=== PATIENT | female | born 1975 | race Caucasian/White ===

== ENCOUNTER 2016-04-14 09:24 | Emergency (ER) | payer MEDICAID ==
[~2016-04-14] VITALS: Ht 162.6 cm; Wt 99.8 kg
[~2016-04-14 09:24] MED LIST: PROAIR HFA0.09 MG/Ac IH
[2016-04-14 09:46] VITALS: BP 142/103
--- NOTE | 2016-04-14 09:54 | NUR ---
PATIENT PRESENTS TO ED WITH PRODUCTIVE COUGH, N/V, BODY ACHES X2 DAYS; TOOK IBUPROFEN YESTERDAY.Hx PNEUMONIA, ASTHMA . PT STATES SHE HAS PAIN IN HER BOTH ARMS, N/VOMITTED 2X TODAY, SKIN IS PINK/WARM/DRY; AAOX4 WITH EVEN AND STEADY GAIT; HR EVEN AND REGULAR; ; PATIENT STATES PAIN OF CHEST AND THROAT W/ SCALE OF 6/10 AT THIS TIME; PATIENT POSITIONED FOR COMFORT; HOB ELEVATED; BEDRAILS UP X2; BED DOWN. MD AT BEDSIDE.
[2016-04-14] MEDS ORDERED: ALBUTEROL SULFATE/IPRATROPIU 3 ML SOL IH ONE (10:10)
--- NOTE | 2016-04-14 11:37 | NUR ---
PT IS AAOX4, NO ACUTE DISTRESS NOTED AT THIS TIME. NEEDS ATTENDED.WILL CONTINUE TO MONITOR.
[2016-04-14] MEDS ORDERED: NACL 0.9% 1,000 ML IV ONE (11:40)
[2016-04-14] MEDS ORDERED: ONDANSETRON 4 MG/2 ML VIAL IVP ONE (11:40)
[2016-04-14] MEDS ORDERED: IBUPROFEN 800 MG TAB PO ONE (11:40)
--- NOTE | 2016-04-14 12:22 | NUR ---
PT AAO. PT VOMITTED X1. NO ACUTE DISTRESS NOTED.HOB ELEVATED NEEDS ATENDED. WILL CONTINUE TO MONITOR. ZOFRAN ADMINISTERED.
[2016-04-14 14:17] VITALS: BP 112/78
--- NOTE | 2016-04-14 14:17 | NUR ---
Note marinaana paula in EDM - 04/14/16 at 1421 by MEDCOMPAF Patient discharged with v/s stable. Written and verbal after care instructions given and explained. Patient alert, oriented and verbalized understanding of instructions. Ambulatory with steady gait. All questions addressed prior to discharge. ID band removed. Patient advised to follow up with PMD. Rx of PREDNISONE AND ALBUTEROL(90 MCG/ACTUATION INHALATION AEROSOL), given. Patient educated on indication of medication including possible reaction and side effects. Opportunity to ask questions provided and answered.
--- NOTE | 2016-04-14 14:22 | NUR ---
Patient discharged with v/s stable. Written and verbal after care instructions given and explained. Patient alert, oriented and verbalized understanding of instructions. Ambulatory with steady gait. All questions addressed prior to discharge. ID band removed. Patient advised to follow up with PMD. Rx of PREDNISONE AND ALBUTEROL(90 MCG/ACTUATION INHALATION AEROSOL)(ALBUTEROL SULFATE 0.5% SOLUTION FOR INHALATION), given. Patient educated on indication of medication including possible reaction and side effects. Opportunity to ask questions provided and answered.
[2016-09-01] MEDS ORDERED: VANCO 1.51.5 GM/250 IV (16:39)
[2016-09-01] MEDS ORDERED: FLAGYL 500500 MG/100 IV (16:40)
== END 2016-04-14 14:22 | disposition home or self-care (01) ==
LOC: MED 09:29
DX: J06.9 Acute upper respiratory infection, unspecified (principal); J02.9 Acute pharyngitis, unspecified; J45.909 Unspecified asthma, uncomplicated
CPT/HCPCS: 71020; 87081; 94640; 96361; 96374; 99285; J2405; J7030; J7620

== ENCOUNTER 2016-09-01 09:05 | Inpatient (IN) | payer MEDICAID ==
[~2016-09-01] VITALS: Ht 160 cm; Wt 103.4 kg
[~2016-09-01 09:05] MED LIST changes: +ALBU-136 IH; -PROAIR HFA0.09 MG/Ac IH
[2016-09-01 09:16] VITALS: BP 132/80
--- NOTE | 2016-09-01 09:30 | NUR ---
PATIENT PRESENTS TO ED WITH THROAT PAIN . PT STATES THROAT PAIN SINCE SUNDAY. SEEN AT [facility] ER FOR SAME COMPLAINT ON SUNDAY. DENIES N/V/D; SKIN IS PINK/WARM/DRY; AAOX4 WITH EVEN AND STEADY GAIT; BILATERAL WHEEZES HEARD ON LOWER LOBES; HR EVEN AND REGULAR; PT DENIES ANY FEVER, CP, SOB. PT HAS COUGH AT THIS TIME; PATIENT STATES PAIN OF 8/10 AT THIS TIME; VSS; PATIENT POSITIONED FOR COMFORT; HOB ELEVATED; BED DOWN. ER MD MADE AWARE OF PT STATUS.
[2016-09-01] MEDS ORDERED: NACL 0.9% 1,000 ML IV SCH (09:41)
[2016-09-01] MEDS ORDERED: DEXAMETHASONE 10 MG/ML VIAL IVP ONE (09:45)
[2016-09-01] MEDS ORDERED: CLINDAMYCIN 900 MG in DEXTROSE 5% 100 ML IV ONE (09:45)
[2016-09-01] MEDS ORDERED: RACEPINEPHRINE 2.25% 13.5 MG/0.5 ML NEBU INH ONE (09:50)
[2016-09-01] MEDS ORDERED: CLINDAMYCIN 900 MG/6 ML VIAL IV ONE (09:58)
[2016-09-01 10:09] LABS: BLOOD GAS PCO2 31.9 mmHg (20-50); BLOOD GAS PH 7.482 (7.35-7.45)
[2016-09-01 10:10] LABS: BLOOD GAS BASE EXCESS 0.5 mmol/L (-2.0-2.0); BLOOD GAS HCO3 23.3 mmol/L; BLOOD GAS O2 SAT% 98.4 % (92.0-98.5)
--- NOTE | 2016-09-01 10:14 | NUR ---
XRAY AT BEDSIDE.
--- NOTE | 2016-09-01 10:16 | NUR ---
RT AT BEDSIDE.
[2016-09-01] MEDS ORDERED: DOCUSATE SODIUM 100 MG GELCAP PO PRN (10:30)
[2016-09-01] MEDS ORDERED: ACETAMINOPHEN 325 MG TAB PO PRN (10:30)
[2016-09-01] MEDS: NACL 0.9% 1,000 ML IV SCH ×2 (10:30→19:49)
[2016-09-01] MEDS ORDERED: ONDANSETRON 4 MG/2 ML VIAL IM/IVP PRN (10:30)
[2016-09-01] MEDS ORDERED: HYDROcodone/APAP 7.5/325 MG 1 TAB PO PRN (10:30)
[2016-09-01 10:31] LABS: BASOPHILS # (AUTO) 0.5 K/uL (0.00-0.22); BASOPHILS % (AUTO) 2.8 % (0.0-2.0); EOSINOPHILS # (AUTO) 0.1 K/uL (0-0.4); EOSINOPHILS % (AUTO) 0.7 % (0.0-4.0); HEMATOCRIT 33.1 % (36-48); HEMOGLOBIN 10.9 g/dL (12.0-16.0); LYMPHOCYTES # (AUTO) 3.2 K/uL (2.5-16.5); LYMPHOCYTES % (AUTO) 19.2 % (20.5-51.1); MEAN CORPUSCULAR HEMOGLOBIN 27 pg (27-31); MEAN CORPUSCULAR HGB CONC 33 g/dL (33-37); MEAN CORPUSCULAR VOLUME 82 fL (80-94); MONOCYTES # (AUTO) 1.4 K/uL (0.8-1.0); MONOCYTES % (AUTO) 8.4 % (1.7-9.3); NEUTROPHILS # (AUTO) 11.3 K/uL (1.8-7.7); NEUTROPHILS % (AUTO) 68.9 % (42.2-75.2); PLATELET COUNT (AUTO) 404 K/uL (140-450); RED BLOOD CELL COUNT(AUTO) 4.02 MIL/uL (4.20-5.40); RED CELL DISTRIBUTION WIDTH 17.1 % (11.6-13.7); WHITE BLOOD COUNT (AUTO) 16.5 K/uL (4.8-10.8)
[2016-09-01 10:56] LABS: APPEARANCE,URINE CLEAR (CLEAR); BILIRUBIN,URINE NEGATIVE (NEGATIVE); BLOOD, URINE TRACE-I (NEGATIVE); COLOR,URINE YELLOW (YELLOW); LEUKOCYTE ESTERASE ,URINE NEGATIVE (NEGATIVE); NITRITE, URINE NEGATIVE (NEGATIVE); PH,URINE 6.5 (5.0-9.0); PROTEIN,URINE NEGATIVE (NEGATIVE); UGLUCOSE NEGATIVE (NEGATIVE); UROBILINOGEN,URINE 0.2 EU/dL (0.2 - 1)
--- NOTE | 2016-09-01 10:59 | NUR ---
Patient will be admitted to care of DR BERKOWITZ. Admited to TELEMETRY. Will go to room 112 A. Belongings list completed. Report to ZEE SHARIF.
[2016-09-01 11:02] LABS: PARTIAL THROMBOPLASTIN TIME 26.9 secs (22-35.6); PROTHROMBIN TIME 10.5 secs (10.8-13.4)
[2016-09-01 11:06] LABS: LACTIC ACID 1.8 mmol/L (0.4-2.0)
[2016-09-01 11:06] LABS: FREE T4 (FREE THYROXINE) 0.99 ng/dL (0.76-1.46); PHOSPHORUS 3.4 mg/dL (2.5-4.9); THYROID STIMULATING HORMONE 5.15 uIU/mL (0.34-3.76)
[2016-09-01 11:12] LABS: ALBUMIN 2.7 g/dL (3.4-5.0); ANION GAP 11.1 (8-16); CALCIUM 7.5 mg/dL (8.5-10.1); CARBON DIOXIDE 27.9 mmol/L (21-32); CREATININE 0.7 mg/dL (0.6-1.3); TOTAL BILIRUBIN 0.3 mg/dL (0.0-1.0); TOTAL PROTEIN, SERUM 7.1 g/dL (6.4-8.2)
[2016-09-01 11:13] LABS: AMPHETAMINE, URINE NEG. ng/ml (NEG <=1000); BARBITURATE, URINE NEG. ng/ml (NEG <=200); BENZODIAZEPINE, URINE NEG. ng/mL (NEG <=200); CANNABINOID, URINE NEG. ng/mL (NEG <=50); COCAINE, URINE NEG. ng/mL (NEG <=300); OPIATE, URINE NEG. ng/mL (NEG <=2000); PHENCYCLIDINE SCREEN,URINE NEG. ng/mL (NEG <=25)
[2016-09-01 11:22] LABS: BACTERIA,URINE OCCASSIONAL /HPF (None Seen); RBC,URINE 0-3 /HPF (0-5); WBC,URINE 0-2 /HPF (0-5)
[2016-09-01 11:23] LABS: MUCUS,URINE 1+ /LPF (None Seen); SQUAMOUS EPITHELIAL CELL,UR 0-3 /LPF (0-3 (FEW))
[2016-09-01 11:30] VITALS: BP 124/90
--- NOTE | 2016-09-01 11:30 | NUR ---
RECEIVED PT VIA GURNEY ON FLOOR, PT IS A/OX4, AMBULATORY, SKIN INTACT, IV ON THE RT AC, PATENT, INTACT, FLUSHING WELL, NO S/S OF RESPIRATORY DISTRESS OR DISCOMFORT NOTED, SAFETY/FALL PRECAUTIONS ARE IN PLACE, DISCUSSED PLAN OF CARE WITH PT, PT VERBALIZED UNDERSTANDING, CALL LIGHT IS WITHIN REACH, WILL CONTINUE TO MONITOR.
--- NOTE | 2016-09-01 13:30 | NUR ---
PT IS RESTING IN BED AT THIS TIME, NO S/S OF RESPIRATORY DISTRESS OR DISCOMFORT NOTED, CALL LIGHT WITHIN REACH WILL CONTINUE TO MONITOR.
[2016-09-01] MEDS ORDERED: ALBUTEROL SULFATE/IPRATROPIU 3 ML SOL IH PRN (15:20)
--- NOTE | 2016-09-01 15:30 | NUR ---
PT IS RESTING IN BED TALKING ON HER CELL PHONE, CALL LIGHT IS WITHIN REACH.
[2016-09-01] MEDS ORDERED: VANCOMYCIN PER PHARMACY MC PRN (15:45)
--- NOTE | 2016-09-01 15:55 | NUR ---
RECEIVED ORDER FOR PATIENT TO BE TRANSFERED FOR ENT. I CALLED [facility], [phone], AND SPOKE WITH FARHANA AND FAXED FACE SHEET. SHE SAID SHE DOES NOT HAVE ANY MED SURG BEDS. I GAVE HER THE PHONE NUMBER TO THE FLOOR IF THEY GET A BED. I CALLED [facility] AND SPOKE WITH YOVANI, [phone]. I FAXED HER THE FACE SHEET TO HER . I SPOKE WITH DR. MILLER AND SHE SAID SHE WOULD TRY TO GET SOMEONE TO ADMIT THE PATIENT AT [facility]. I CALLED [facility] AND SPOKE WITH FIONA AFTER I FAXED INQUIRY TO THEM, PHONE [phone]. SHE SAID THEY WILL REVIEW AND CALL BACK. I PUT THE PHONE NUMBER TO THE FLOOR ON THE FAX SHEET. CALLED SAMUEL AT [facility] AND SHE SAID THAT THE ACCEPTING PHYSICIAN WOULD BE DR. Lynda VILLASENOR. SHE FAXED ME THE TRANSFER BACK AGREEMENT AND SENT IT BACK AFTER BEING FILLED OUT. SAMUEL SAID AT PRESENT, NO BEDS AND I GAVE HER THE PHONE NUMBER TO THE FLOOR TO CALL. [place] [facility]POKE WITH SELIN . SHE SAID THEY WILL NOT CONSIDER THIS PATIENT UNLESS PRUCOL FOR MEDI-PATRICIO IS INITIATED. CALLED [facility]. NO BEDS CALLED [facility] AND SPOKE WITH JOJO. PHONE [phone]. SHE SAID SHE HAS NO BEDS, BUT CHECK TOMORROW. I FAXED INQUIRY TO HER AT [phone]. I ALSO PUT THE PHONE NUMBER TO THE FLOOR ON THE FAX COVER SHEET.
[2016-09-01] MEDS: metroNIDAZOLE 500 MG/NS PREMIX 100 ML IV SCH ×2 (16:37→23:50)
[2016-09-01] MEDS ORDERED: VANC1.5P7 IV (16:39)
[2016-09-01] MEDS ORDERED: METR500S14 IV (16:40)
--- NOTE | 2016-09-01 16:58 | NUR ---
CALLED [facility] AND SPOKE WITH OYSTER TONGER, TA. SHE SAID THEY HAVE 1 ENT AND HE ONLY TAKES MEDICARE AND COMMERCIAL.. CALLED [facility] AND SPOKE WITH KHOI. THEY DO NOT HAVE AN ENT ON STAFF. CALLED [facility], NOT ENT. CALLED [facility] AND SPOKE WITH OYSTER TONGER LEIGHA. NO ENT AVAILABLE. SPOKE WITH JACQUI AT [facility] AND HE SAID HE WILL BE CHECKING WITH BED CONTROL AND WILL CALL THE FLOOR WITH THE STATUS. ACCCEPTING PHYSICIAN AT [facility] IS DR. Moon VILLASENOR.
--- NOTE | 2016-09-01 17:30 | NUR ---
PT IS SLEEPING IN BED AT THIS TIME. CALL LIGHT WITHIN REACH.
[2016-09-01 18:00] VITALS: BP 129/78
[2016-09-01] MEDS: VANCOMYCIN 1,500 MG in DEXTROSE 5% 500 ML IV SCH (18:33)
[2016-09-01] MEDS: KETOROLAC 15 MG/ML VIAL IVP SCH (18:33)
[2016-09-01 18:57] VITALS: BP 124/90
[2016-09-01] MEDS: ALBUTEROL SULFATE/IPRATROPIU 3 ML SOL IH SCH ×2 (19:18→23:21)
--- NOTE | 2016-09-01 19:35 | NUR ---
ENDORSED PT TO ZEE HORTON. FOR CONTINUITY OF CARE, PT STABLE AT THIS TIME, SISTER IS AT BEDSIDE.
--- NOTE | 2016-09-01 19:35 | NUR ---
RECEIVED REPORT FROM CHANTE KOCH AT BEDSIDE. PT IS ALERT, AWAKE ORIENTED X4. INITIAL ASSESSMENT DONE. NO S/S OF RESPIRATORY DISTRESS OR SOB NOTED. NO C/O PAIN OR ANY DISCOMFORT AT THIS TIME. PLAN OF CARE REVIEWED TO PT AND FAMILY AT BEDSIDE AND VERBALIZED UNDERSTANDING. CALL LIGHT WITHIN REACH. WILL CONTINUE TO MONITOR.
[2016-09-01 20:00] VITALS: BP 126/84
[2016-09-01] MEDS ORDERED: CLINDAMYCIN 600 MG in DEXTROSE 5% 50 ML IV SCH (21:00)
[2016-09-02] VITALS: BP 122/83
[2016-09-02] MEDS: KETOROLAC 15 MG/ML VIAL IVP SCH ×2 (00:08→05:56)
--- NOTE | 2016-09-02 00:40 | NUR ---
PT IS SLEEPING RIGHT NOW BUT EASILY AROUSABLE. NO S/S OF ANY DISCOMFORT AT THIS TIME. ALL NEEDS ARE ATTENDED. CALL LIGHT WITHIN REACH. WILL CONTINUE TO MONITOR.
[2016-09-02] MEDS: ALBUTEROL SULFATE/IPRATROPIU 3 ML SOL IH SCH ×6 (02:53→23:43)
[2016-09-02] MEDS: NACL 0.9% 1,000 ML IV SCH ×3 (03:01→15:11)
[2016-09-02 04:00] VITALS: BP 125/81
[2016-09-02] MEDS: VANCOMYCIN 1,500 MG in DEXTROSE 5% 500 ML IV SCH ×2 (05:04→17:08)
--- NOTE | 2016-09-02 05:30 | NUR ---
AM CARE RENDERED. BED LINEN CHANGED. INSTRUCTED PT TO REPOSITION. KEPT CLEAN AND DRY. CALL LIGHT WITHIN REACH. WILL CONTINUE TO MONITOR.
[2016-09-02 06:44] LABS: HEMATOCRIT 34.1 % (36-48); HEMOGLOBIN 11.3 g/dL (12.0-16.0); MEAN CORPUSCULAR HEMOGLOBIN 27 pg (27-31); MEAN CORPUSCULAR HGB CONC 33 g/dL (33-37); MEAN CORPUSCULAR VOLUME 83 fL (80-94); PLATELET COUNT (AUTO) 425 K/uL (140-450); RED BLOOD CELL COUNT(AUTO) 4.13 MIL/uL (4.20-5.40); RED CELL DISTRIBUTION WIDTH 17.4 % (11.6-13.7); WHITE BLOOD COUNT (AUTO) 16.5 K/uL (4.8-10.8)
[2016-09-02 07:03] LABS: ANION GAP 13.2 (8-16); CALCIUM 7.6 mg/dL (8.5-10.1); CARBON DIOXIDE 25.1 mmol/L (21-32); CREATININE 0.6 mg/dL (0.6-1.3); POTASSIUM 3.3 mmol/L (3.5-5.1)
[2016-09-02 07:08] LABS: BAND % (MANUAL) 3 % (0-8); LYMPHOCYTES % (MANUAL) 11 % (20-46); MONOCYTES % (MANUAL) 5 % (5-12); NEUTROPHILS % (MANUAL) 81 (43-65)
[2016-09-02 07:11] LABS: MAGNESIUM 2.4 mg/dL (1.8-2.4); PHOSPHORUS 3.4 mg/dL (2.5-4.9)
--- NOTE | 2016-09-02 07:31 | NUR ---
PT HAS NO S/S OF ANY DISCOMFORT. PLAN OF CARE ENDORSE TO TERRENCE KOCH AT BEDSIDE FOR CONTINUITY OF CARE.
--- NOTE | 2016-09-02 07:32 | NUR ---
RECEIVED REPORT FROM CLIFFORD KOCH AT BEDSIDE. PT IS AWAKE, ALERT, AND ORIENTED.ON ROOM AIR, NO S/S OF RESPIRATORY DISTRESS OR SOB NOTED. NO C/O PAIN OR ANY DISCOMFORT AT THIS TIME. IV TO RIGHT AC , SITE INTACT AND PATENT. PT COMPLAINS PAIN TO IV SITE AT LEFT HAND AND REQUESTS TO D/C IV, WILL D/C LEFT HAND IV. PLAN OF CARE DISCUSSED WITH PT AND VERBALIZED UNDERSTANDING. CALL LIGHT WITHIN REACH. WILL CONTINUE TO MONITOR.
[2016-09-02 08:00] VITALS: BP 136/61
[2016-09-02] MEDS: metroNIDAZOLE 500 MG/NS PREMIX 100 ML IV SCH ×2 (08:00→15:10)
[2016-09-02] MEDS: methylPREDNISolone SS 125 MG/2 ML VIAL IVP SCH (08:04)
--- NOTE | 2016-09-02 09:04 | NUR ---
PATIENT HAS BEEN SCREENED AND CATEGORIZED HIGH NUTRITION RISK. PATIENT WILL BE SEEN WITHIN 1-2 DAYS OF ADMISSION. 09/02/16-09/03/[address]
[2016-09-02 09:07] LABS: T4 (THYROXINE) 5.3 ug/dL (4.5-12.0)
--- NOTE | 2016-09-02 09:10 | NUR ---
DUE MEDS GIVEN. PT TOLERATED WELL.
--- NOTE | 2016-09-02 09:27 | NUR ---
Social Service Note: Possible transfer follow up: I called and spoke with Leach Tank Tender Misti from [facility] . Per Misti, they do not have any beds available at this time, stated they need to know who accepting physician will be, I informed Charge Nurse Bela of this. Per Misti, they have inquiry and have our telemetry's phone number. I called and spoke with Leach Tank Tender Carmen from [facility] . Per Carmen, they do not have any beds available at this time, she stated she does not have patient on her list. Carmen I need to speak with their admitting dept first and inquire if they need additional information first, she transferred me to their admitting dept. I spoke with Jaquan from admitting dept at [facility]. Per Jaquan, enforcement manager of admitting dept Mary from [facility] stated they can't accept because patient's Medi-Michele is restricted to emergencies, I informed Charge Nurse Bela of this.
--- NOTE | 2016-09-02 11:36 | NUR ---
Social Service Note: I met with patient at bedside and provided her with an update regarding transfer for ENT. Patient Portuguese. Patient inquired if she could leave hospital on her own and directly seek medical attention at another hospital. I explained to her that she had the right to leave our hospital at any time and sign against medical advise, however, we did not recommend her do that. She verbalized understanding. She reported she feels better at this time, however, not well enough. She stated she is considering going against medical against. She inquired if I thought it would be a good idea to go [facility]. I explained to her that I could not recommend her to leave our hospital against medical against advise. She thanked me for providing her with an update regarding transfer for ENT and stated she is going to determine what is best for her. Charge Nurse Bela aware of above information.
[2016-09-02] MEDS: MORPHINE SULFATE 2 MG/ML SYR IVP PRN ×2 (11:38→21:59)
[2016-09-02 11:59] VITALS: BP 114/62
--- NOTE | 2016-09-02 12:31 | NUR ---
Social Service Note: I called and spoke with Melvina from [facility] . Per Melvina, they do not have any beds available at this time, she stated they have the phone number of our telemetry station.
--- NOTE | 2016-09-02 13:10 | NUR ---
PT WALKED TO BATH ROOM WITH STEADY GAIT, NO S/S OF RESPIRATORY DISTRESS NOTED. NO PAIN COMPLAINED AT THIS TIME. PT STATED SHE FEELS MUCH BETTER AT THIS TIME. WILL CONTINUE TO MONITOR.
[2016-09-02 13:17] LABS: HEMOGLOBIN A1C 5.9 % (4.8-5.6)
--- NOTE | 2016-09-02 14:31 | NUR ---
09/02/16 RD INITIAL ASSESSMENT COMPLETED PLEASE REFER TO NUTRITION ASSESSMENT UNDER CARE ACTIVITY FOR ESTIMATED NUTRITIONAL NEEDS. RD RECOMMENDATIONS: 1. CONTINUE NPO MEDICALLY APPROPRIATE PER MD. 2. IF/WHEN PT IS MEDICALLY STABLE TO BEGIN NUTRITION, CONSIDER CLEAR LIQUID AND ADVANCE TOLERATED TO REGULAR DIET WITH TEXTURE MODIFICATION PER ST. --CONSIDER ORDERING SWALLOW EVAL TO SEE IF PT CAN TOLERATED PO DIET. --IF PT CANNOT TOLERATE PO DIET, CONSIDER NUTRITION SUPPORT. PLEASE CONSULT RD FOR RECOMMENDATIONS. 3. RD WILL F/U 2-3 DAYS; HIGH RISK. NILE RHODES RD
[2016-09-02 15:55] LABS: FOLIC ACID 11.2 ng/mL (>3.0)
[2016-09-02 16:00] VITALS: BP 127/76
--- NOTE | 2016-09-02 16:02 | NUR ---
TEMP CHECKED 99.4, ICE BAGS GIVEN TO PT, WILL RECHECK.
--- NOTE | 2016-09-02 16:40 | NUR ---
TEMP RECHECKED 98.3.
--- NOTE | 2016-09-02 18:05 | NUR ---
PT AWAKE, ALERT, AND ORIENTED. NO S/S OF RESPIRATORY DISTRESS NOTED, NO FEVER, PT STATED SHE FEELS GOOD AT THIS TIME.
--- NOTE | 2016-09-02 19:00 | NUR ---
RECEIVED PT FROM TERRENCE RN PT DANISH SPEAKER AAOX4 AMBULATORY IV ON RT AC INFUSING WELL, ON TELEMETRY SR DENIES ANY PAINI AT THIS TIME INITIAL ASSESSMENT DONE
[2016-09-02 20:00] VITALS: BP 123/77
[2016-09-02] MEDS ORDERED: KCL 20 MEQ/WATER INJ PREMIX 100 ML IV ONE (20:25)
--- NOTE | 2016-09-02 21:00 | NUR ---
SLPONGE BATH GIVEN LINEN CHANGED
[2016-09-03] VITALS: BP 120/72
--- NOTE | 2016-09-03 | NUR ---
K RIDDER GIVEN ORDER AND RT ARM PAINFUL AND A NEW IV IS INSERTED IN LEFT HAND GAUGE #22, PT AMBULATORY ON TELEMETRY SR
[2016-09-03] MEDS: metroNIDAZOLE 500 MG/NS PREMIX 100 ML IV SCH ×4 (00:06→23:39)
[2016-09-03] MEDS: NACL 0.9% 1,000 ML IV SCH ×4 (00:23→18:24)
[2016-09-03] MEDS: ALBUTEROL SULFATE/IPRATROPIU 3 ML SOL IH SCH ×6 (03:30→23:16)
[2016-09-03 04:00] VITALS: BP 115/65
--- NOTE | 2016-09-03 04:18 | NUR ---
PT DENIES ANY PAIN ON TELE SR IV ON LEFT HAND INFUSING WELL, AMBULATES TO THE RESTROOM VOIDING WELL
[2016-09-03] MEDS: VANCOMYCIN 1,500 MG in DEXTROSE 5% 500 ML IV SCH (05:56)
--- NOTE | 2016-09-03 06:47 | NUR ---
PT VERBALIZED TO FEEL BETTER NOT FEVER DENIES ANY PAIN ON TELEMETRY SR IV ON LEFT HAND INFUSING WELL
[2016-09-03 07:21] LABS: HEMATOCRIT 33.2 % (36-48); HEMOGLOBIN 10.8 g/dL (12.0-16.0); MEAN CORPUSCULAR HEMOGLOBIN 27 pg (27-31); MEAN CORPUSCULAR HGB CONC 33 g/dL (33-37); MEAN CORPUSCULAR VOLUME 84 fL (80-94); PLATELET COUNT (AUTO) 439 K/uL (140-450); RED BLOOD CELL COUNT(AUTO) 3.97 MIL/uL (4.20-5.40); RED CELL DISTRIBUTION WIDTH 17.1 % (11.6-13.7); WHITE BLOOD COUNT (AUTO) 21.1 K/uL (4.8-10.8)
--- NOTE | 2016-09-03 07:30 | NUR ---
RECEIVED REPORT FROM NIGHT RN AT BEDSIDE. PT IS AWAKE, ALERT, AND ORIENTED.ON ROOM AIR, NO S/S OF RESPIRATORY DISTRESS OR SOB NOTED. COMPLAINED LEFT NECK PAIN, ICE BAG GIVEN. WILL CONTINUE TO CHECK PT. PLAN OF CARE DISCUSSED WITH PT AND VERBALIZED UNDERSTANDING. CALL LIGHT WITHIN REACH. WILL CONTINUE TO MONITOR
[2016-09-03] MEDS: methylPREDNISolone SS 125 MG/2 ML VIAL IVP SCH (07:40)
[2016-09-03 07:52] LABS: BAND % (MANUAL) 1 % (0-8); LYMPHOCYTES % (MANUAL) 10 % (20-46); MAGNESIUM 2.5 mg/dL (1.8-2.4); MONOCYTES % (MANUAL) 1 % (5-12); NEUTROPHILS % (MANUAL) 88 (43-65); PHOSPHORUS 2.5 mg/dL (2.5-4.9)
[2016-09-03 07:54] LABS: ANION GAP 11.9 (8-16); CALCIUM 7.5 mg/dL (8.5-10.1); CARBON DIOXIDE 23.5 mmol/L (21-32); CREATININE 0.6 mg/dL (0.6-1.3); POTASSIUM 3.4 mmol/L (3.5-5.1)
[2016-09-03 08:00] VITALS: BP 130/75
[2016-09-03] MEDS: MORPHINE SULFATE 2 MG/ML SYR IVP PRN ×2 (08:12→23:36)
[2016-09-03] MEDS ORDERED: DEXAMETHASONE 4 MG/ML VIAL IVP SCH (09:00)
--- NOTE | 2016-09-03 09:10 | NUR ---
DUE MEDS GIVEN ,PT TOLERATED WELL.
--- NOTE | 2016-09-03 09:30 | NUR ---
PT'S MOTHER AND DAUGHTER AT BEDSIDE.
[2016-09-03 12:00] VITALS: BP 127/80
--- NOTE | 2016-09-03 12:15 | NUR ---
PT RESTING IN BED, NO S/S OF RESPIRATORY DISTRESS NOTED. CALL LIGHT IN REACH, WILL CONTINUE TO MONITOR.
--- NOTE | 2016-09-03 15:11 | NUR ---
PT WANTS TO TAKE A SHOWER, NOTIFIED DR. CEDEÑO, PER DR. CEDEÑO , IT IS NOT SAFE TO TAKE A SHOWER. EXPLAINED TO PT, PT VERBALIZED UNDERSTANDING. BED BATH GIVEN TO PT.
[2016-09-03 16:00] VITALS: BP 102/70
--- NOTE | 2016-09-03 18:07 | NUR ---
PT'S AT BEDSIDE.
--- NOTE | 2016-09-03 19:00 | NUR ---
PT A/O X4. NO SOB. ENDORSED PT TO [employer] OFFICER RN.
--- NOTE | 2016-09-03 19:15 | NUR ---
RECEIVED PT FROM TERRENCE KOCH PT IS AAOX4 AMBULATORY IV ON LEFT HAND INFUSING WELLL, ON TELMETRY SR DENIES ANY PAIN AT THISTIME RELATIVES AT BED SIDE INITIAL ASSESSMENT DONE
[2016-09-03 20:00] VITALS: BP 124/68
[2016-09-03] MEDS ORDERED: cefTRIAXone 1,000 MG VIAL ONE (20:23)
--- NOTE | 2016-09-03 22:00 | NUR ---
PT IS TRANSFER TO ROOM 125 b for HOSPITAL CONSTRUCTION
[2016-09-04] VITALS: BP 118/62
--- NOTE | 2016-09-04 01:31 | NUR ---
AFTERLPAIN MEDIC GIVEN PT SLEEPS QELL NOT DISTRESS NOTED
[2016-09-04] MEDS: ALBUTEROL SULFATE/IPRATROPIU 3 ML SOL IH SCH ×6 (03:04→23:55)
[2016-09-04] MEDS: NACL 0.9% 1,000 ML IV SCH (03:50)
[2016-09-04 04:00] VITALS: BP 107/71
--- NOTE | 2016-09-04 04:00 | NUR ---
SPONGE BATH GIVEN , LINEN CHANGED IV ON LEFT HAND INFUSING WELL DENIES ANY PAIN AT THIS TIME ON TELEMETRY SR
[2016-09-04 06:34] LABS: ANION GAP 11.6 (8-16); CALCIUM 7.1 mg/dL (8.5-10.1); CARBON DIOXIDE 23.9 mmol/L (21-32); CREATININE 0.5 mg/dL (0.6-1.3); HEMATOCRIT 33.4 % (36-48); HEMOGLOBIN 10.8 g/dL (12.0-16.0); MEAN CORPUSCULAR HEMOGLOBIN 27 pg (27-31); MEAN CORPUSCULAR HGB CONC 32 g/dL (33-37); MEAN CORPUSCULAR VOLUME 83 fL (80-94); PLATELET COUNT (AUTO) 441 K/uL (140-450); POTASSIUM 3.5 mmol/L (3.5-5.1); RED BLOOD CELL COUNT(AUTO) 4.05 MIL/uL (4.20-5.40); RED CELL DISTRIBUTION WIDTH 17.1 % (11.6-13.7); WHITE BLOOD COUNT (AUTO) 20.5 K/uL (4.8-10.8)
--- NOTE | 2016-09-04 07:00 | NUR ---
PT ALERT AND ORIENTED X4, BREATHING EVENLY AND UNLABORED. NO SIGNS OF ACUTE DISTRESS. SKIN IS WARM AND DRY. NO SIGNS OF ANY NAUSEA OR VOMITING. ABLE TO PERFORM ADL'S INDEPENDENTLY. NO C/O ANY PAIN AT THIS TIME, ALL NEEDS ATTENDED, SAFETY PRECAUTIONS MAINTAINED. KEPT ON NPO ORDERED. CALL LIGHT WITHIN REACH.
[2016-09-04 07:45] LABS: NEUTROPHILS % (MANUAL) 79 (43-65)
[2016-09-04 07:46] LABS: BAND % (MANUAL) 7 % (0-8); LYMPHOCYTES % (MANUAL) 8 % (20-46); MONOCYTES % (MANUAL) 6 % (5-12)
[2016-09-04 07:59] VITALS: BP 121/74
[2016-09-04] MEDS: metroNIDAZOLE 500 MG/NS PREMIX 100 ML IV SCH ×2 (08:24→15:19)
--- NOTE | 2016-09-04 09:20 | NUR ---
OBTAIN CONSENT FOR CT NECK WITH CONTRAST. CONTINUE TO MONITOR.
[2016-09-04] MEDS ORDERED: KETOROLAC 30 MG/ML VIAL IVP SCH (09:30)
[2016-09-04] MEDS: DEXT 5% /NACL 0.9% 1,000 ML IV SCH ×2 (09:30→19:17)
--- NOTE | 2016-09-04 09:56 | NUR ---
PT PLACED ON MED SURG MONITORING ORDERED.
--- NOTE | 2016-09-04 11:07 | NUR ---
RECEIVED A CALL FROM MICHAEL FROM [facility]. SHE SAID THEY CANNOT TAKE THIS PATIENT . DOCTOR DECLINED BECAUSE THEY WOULDN'T BE ABLE TO SEE LATER AN OUT PATIENT DU TO INSURANCE. I CALLED [facility] AND SPOKE WITH FARHANA, NO BEDS I CALLED [facility] AND SPOKE WITH PIA. NO BEDS PRESENT, SHE IS SECOND ON THEIR LIST FOR ADMIT.
--- NOTE | 2016-09-04 15:59 | NUR ---
RECEIVED ORDER FROM DR. CEDEÑO, CHANGE DIET TO CLEAR LIQUID. NOTED AND CARRIED OUT.
[2016-09-04 16:00] VITALS: BP 121/72
--- NOTE | 2016-09-04 16:14 | NUR ---
CALLED [facility] AND SPOKE WITH PIA. NO BED AT PRESENT. SHE HAS THE PHONE NUMBER TO THE FLOOR IF A BED BECOMES AVAILABLE. SPOKE WITH FARHANA AT [facility], NO BEDS. CALLED [facility] AND SPOKE WITH KAVON, NO BEDS.
--- NOTE | 2016-09-04 18:21 | NUR ---
PT AWAKE ALERT AND RESPONSIVE, NO SIGNS OF ACUTE DISTRESS. WILL ENDORSE TO ONCOMING INTERN NURSE FOR CONTINUITY OF CARE.
--- NOTE | 2016-09-04 19:35 | NUR ---
RECEIVED FROM AM RN AMBULATING HALLWAY. AWAKE AND ALERT. ORIENTED X 4. ROM X 4. CLEAR SPEECH. NO SOB. DENIES PAIN AT THIS TIME. DX. OF TONSILLITIS. IVF SITES TO RAC AND LEFT HAND INTACT AND NO INFILTRATION NOTED. ENCOURGED TO CALL FOR ANY HELP SHE MAY NEED OR IF IN PAIN.
[2016-09-04] MEDS: MORPHINE SULFATE 2 MG/ML SYR IVP PRN (20:30)
--- NOTE | 2016-09-04 21:00 | NUR ---
MD NELSON/ INFECTION SPECIALIST IN HERE TO SEE PT. NO FURTHER ORDERS GIVEN.
--- NOTE | 2016-09-04 22:15 | NUR ---
MEDICATED WITH PRN PAIN RELIEVER MORPHINE IVP REQUESTED RT THROAT HURTS PER PT. ABLE TO VERBALIZE NEEDS WELL. ABLE TO USE CALL LIGHT FOR HELP.
[2016-09-05] MEDS: metroNIDAZOLE 500 MG/NS PREMIX 100 ML IV SCH ×2 (00:06→09:04)
[2016-09-05] MEDS: DEXT 5% /NACL 0.9% 1,000 ML IV SCH ×2 (00:10→12:48)
[2016-09-05 00:13] VITALS: BP 119/62
--- NOTE | 2016-09-05 00:30 | NUR ---
PT. SLEEPING. NO COMPLAINTS DONE. CALL LIGHT WITH IN REACH.
--- NOTE | 2016-09-05 03:25 | NUR ---
SLEEPING AT THIS TIME.
[2016-09-05] MEDS: ALBUTEROL SULFATE/IPRATROPIU 3 ML SOL IH SCH ×4 (03:45→15:49)
--- NOTE | 2016-09-05 04:38 | NUR ---
WOKE UP AND REQUESTED FOR APPLE JUICE. PROVIDED WITH ONE. PT. STATED THAT SHE VOMITED X 1. OFFERED MEDICINE FOR IT BUT PT. REFUSED. STATED THAT "I HAVE SO MUCH MEDICINE THAT IT MAKES MY STOMACH BLOATED" . COVERED WITH WARM BLANKET REQUESTED. WENT BACK TO SLEEP AFTER.
--- NOTE | 2016-09-05 06:27 | NUR ---
SLEEPING STILL. NO RESTLESSNESS NOTED. USES CALL LIGHT FOR HELP OR USES PHONE TO CALL FOR HELP.
--- NOTE | 2016-09-05 07:18 | NUR ---
RECEIVED PT IN BED. AWAKE, ALERT ORIENTED X4. NO SOB NOTED. DENIES ANY PAIN OR DISCOMFORT AT THIS TIME. POSITIVE BOWEL SOUNDS NOTED ON FOUR QUADRANTS. PT AMBULATORY TO THE BATHROOM. SAFETY PRECAUTION IN PLACE. CALL LIGHT WITHIN REACH.
[2016-09-05 08:00] VITALS: BP 123/74
[2016-09-05] MEDS: MORPHINE SULFATE 2 MG/ML SYR IVP PRN (09:26)
--- NOTE | 2016-09-05 10:15 | NUR ---
DR. MILLER CAME TO SEE PT. ACCORDING TO DOCTOR ANGELA PT VERBALIZED SHE WANTED TO GO HOME AND DOESN'T WANT TO WAIT TO GET TRANSFERED TO HIGHER LEVEL OF CARE FOR PROCEDURE. EXPLAINED RISKS TO PT PER DR. MILLER. BUT PT WOULD STILL WANT TO SIGN AMA.
--- NOTE | 2016-09-05 12:00 | NUR ---
PT VERBALIZED THAT SHE IS WAITING FOR HER SON TO PICK HER UP AROUND 7PM. DR. MILLER AWARE, CHARGE NURSE AWARE.
--- NOTE | 2016-09-05 12:10 | NUR ---
PT SIGNED AMA FORM
--- NOTE | 2016-09-05 13:00 | NUR ---
CM NOTE PER [facility], NO BEDS AVAILABLE. PATIENT STILL ON TRANSFER LIST.
--- NOTE | 2016-09-05 15:21 | NUR ---
09/05/16 RD FOLLOW-UP ASSESSMENT COMPLETED PLEASE REFER TO NUTRITION ASSESSMENT UNDER CARE ACTIVITY FOR ESTIMATED NUTRITIONAL NEEDS. 1. CONTINUE CLEAR LIQUID DIET, WHEN MEDICALLY FEASIBLE ADVANCE TOLERATED TO REGULAR DIET 2. RD TO FOLLOW-UP 2-3 DAYS; HIGH RISK JOSE MACDONALD, REYNA
[2016-09-05 16:00] VITALS: BP 122/84
--- NOTE | 2016-09-05 18:16 | NUR ---
KULDIP, SISTER CAME TO COKE STILL CLEANER PT. IV CANNULA REMOVED AND INTACT. PT WALKED OUT OF THE HOSPITAL WITH SISTER
--- NOTE | 2016-09-05 19:30 | NUR ---
DUONE[facility] MEDICTION WAS REMOVED FROM [facility], BUT PATIENT WAS NOT IN ROOM, WAS DISCHARGED AMA, I WAS UNABLE TO RETURN DUONE[facility] TO [facility], I SPOKE TO CHARGE NURSE MS. SANCHEZ. I PLACE PATIENT STICKER WITH NOTE ON DUONEB PACKAGE AND LEFT MEDICATION IN YELLOW BIN IN THE MEDICATION ROOM
[2016-09-05] MEDS ORDERED: metroNIDAZOLE 500 MG/NS PREMIX 100 ML IV SCH (21:00)
== END 2016-09-05 18:20 | disposition left against medical advice (07) | DRG 720 ==
LOC: MED 09:05 → MTU 10:35 → MMU 09-03 20:40
PROVIDERS: ADMIT Family Medicine; ATTEND Family Medicine
DX: A41.9 Sepsis, unspecified organism (principal); E43 Unspecified severe protein-calorie malnutrition; J36 Peritonsillar abscess; E02 Subclinical iodine-deficiency hypothyroidism; J45.909 Unspecified asthma, uncomplicated; D64.9 Anemia, unspecified; I80.8 Phlebitis and thrombophlebitis of other sites; Z53.21 Procedure and treatment not carried out due to patient leaving prior to being seen by health care provider; Z79.899 Other long term (current) drug therapy; Z98.51 Tubal ligation status; Z72.89 Other problems related to lifestyle; Z68.41 Body mass index [BMI] 40.0-44.9, adult; Z71.3 Dietary counseling and surveillance
CPT/HCPCS: 36415; 36600; 70491; 71010; 80048; 80053; 80202; 80305; 81001; 82150; 82550; 82553; 82607; 82728; 82746; 82803; 82948; 83036; 83540; 83605; 83690; 83735; 83874; 83880; 84100; 84436; 84439; 84443; 84479; 84484; 85025; 85045; 85610; 85730; 87040; 87081; 87086; 93005; 94640; 96365; 96375; 99285; J0696; J1100; J1885; J2270; J2930; J3370; J3480; J3490; J7030; J7042; J7060; J7620; Q0092; Q9967

== ENCOUNTER 2018-03-02 07:17 | Emergency (ER) | payer MEDICAID ==
[~2018-03-02] VITALS: Ht 157.5 cm; Wt 99.8 kg
[~2018-03-02 07:17] MED LIST changes: +METR500S14 IV; +VANC1.5P7 IV
[2018-03-02 07:24] VITALS: BP 138/87
[2018-03-02] MEDS ORDERED: ALBUTEROL SULFATE/IPRATROPIU 3 ML SOL IH ONE (07:25)
--- NOTE | 2018-03-02 07:27 | NUR ---
PT AMBULATES TO BED 11
[2018-03-02] MEDS ORDERED: cefTRIAXone 1,000 MG in LIDOCAINE 1% ***ER ONLY *** 2.1 ML IM ONE (07:30)
[2018-03-02] MEDS ORDERED: hydrOXYzine HCL 25 MG TAB PO ONE (07:30)
[2018-03-02] MEDS ORDERED: DEXAMETHASONE 10 MG/ML VIAL IM ONE (07:30)
--- NOTE | 2018-03-02 07:30 | NUR ---
Patient being evaluated by physician at bedside.
--- NOTE | 2018-03-02 07:30 | NUR ---
c/o asthma exacerbation---out of albuterol inhalor cough rhinorrhea bodyaches x2 days DENIES N/V/D; SKIN IS PINK/WARM/DRY; AAOX4 WITH EVEN AND STEADY GAIT; LUNGS CLEAR BL; HR EVEN AND REGULAR; PT DENIES ANY FEVER, CP, SOB, OR COUGH AT THIS TIME; PATIENT STATES PAIN OF 0/10 AT THIS TIME; VSS; PATIENT POSITIONED FOR COMFORT; HOB ELEVATED; BEDRAILS UP X2; BED DOWN. ER MD MADE AWARE OF PT STATUS.
--- NOTE | 2018-03-02 07:34 | NUR ---
RT AT BEDSIDE
[2018-03-02] MEDS ORDERED: cefTRIAXone 1,000 MG VIAL ONE (08:29)
[2018-03-02] MEDS ORDERED: LIDOCAINE MPF 1% - 5 mL VIAL 5 ML ONE (08:36)
[2018-03-02 09:24] VITALS: BP 138/87
--- NOTE | 2018-03-02 09:25 | NUR ---
Patient discharged with v/s stable. Written and verbal after care instructions given and explained. Patient alert, oriented and verbalized understanding of instructions. Ambulatory with steady gait. All questions addressed prior to discharge. ID band removed. Patient advised to follow up with PMD. Rx of albuterol,azithromycin,albuterol, and prednisone given. Patient educated on indication of medication including possible reaction and side effects. Opportunity to ask questions provided and answered.
== END 2018-03-02 09:25 | disposition home or self-care (01) ==
LOC: MED 07:17
DX: J45.901 Unspecified asthma with (acute) exacerbation (principal); J06.9 Acute upper respiratory infection, unspecified; Z79.899 Other long term (current) drug therapy
CPT/HCPCS: 94640; 96372; 99283; J0696; J1100; J2001; J7620

== ENCOUNTER 2018-06-09 09:02 | Emergency (ER) | payer MEDICAID ==
[~2018-06-09] VITALS: Ht 162.6 cm; Wt 103.4 kg
[2018-06-09 09:10] VITALS: BP 119/72
--- NOTE | 2018-06-09 09:18 | NUR ---
PT AMBULATED TO ED BED 06
--- NOTE | 2018-06-09 09:25 | NUR ---
C/O COUGH WITH FEVER SINCE SUNDAY. TOOK MOTRIN 4 HRS AGO. HX. ASTHMA. PT STATES COUGH IS NOT GETTING BETTER. COUGH IS PRODUCTIVE WITH YELLOW GREEN PHLEGM. PATIENT STATES PAIN IN CHEST, BACK, AND ABDOMEN WITH OF 9/10 AT THIS TIME; VSS; PATIENT POSITIONED FOR COMFORT; HOB ELEVATED; BEDRAILS UP X1; BED DOWN. ER MD MADE AWARE OF PT STATUS.
--- NOTE | 2018-06-09 09:33 | NUR ---
XRAY AT BEDSIDE
--- NOTE | 2018-06-09 09:49 | NUR ---
Patient being evaluated by physician at bedside.
[2018-06-09] MEDS ORDERED: ACETAMIN/CODEINE 120/12MG-5ML 5 ML UDC PO ONE (09:55)
[2018-06-09 10:38] VITALS: BP 119/72
--- NOTE | 2018-06-09 10:39 | NUR ---
Patient discharged with v/s stable. Written and verbal after care instructions given and explained. Patient alert, oriented and verbalized understanding of instructions. Ambulatory with steady gait. All questions addressed prior to discharge. ID band removed. Patient advised to follow up with PMD. Rx of GUAIATUSSIN, ALBUTEROL, AND AZITHROMYCIN given. Patient educated on indication of medication including possible reaction and side effects. Opportunity to ask questions provided and answered.
== END 2018-06-09 10:39 | disposition home or self-care (01) ==
LOC: MED 09:02
DX: J20.9 Acute bronchitis, unspecified (principal); J45.909 Unspecified asthma, uncomplicated; Z79.2 Long term (current) use of antibiotics; Z79.899 Other long term (current) drug therapy; Z98.51 Tubal ligation status
CPT/HCPCS: 71045; 99283; Q0092

== ENCOUNTER 2018-12-14 23:48 | Emergency (ER) | payer MEDICAID ==
[~2018-12-14] VITALS: Ht 154.9 cm; Wt 98.0 kg
[2018-12-15 00:10] VITALS: BP 116/93
[2018-12-15] MEDS ORDERED: KETOROLAC 30 MG/ML VIAL IM ONE (00:25)
[2018-12-15] MEDS ORDERED: HYDROcodone/APAP 5/325 MG 1 TAB TAB PO ONE (02:10)
[2018-12-15 03:12] VITALS: BP 116/93
== END 2018-12-15 03:12 | disposition home or self-care (01) ==
LOC: MED 23:48
DX: S82.831A Other fracture of upper and lower end of right fibula, initial encounter for closed fracture (principal); Z79.2 Long term (current) use of antibiotics; Z79.899 Other long term (current) drug therapy; J45.909 Unspecified asthma, uncomplicated; Z90.89 Acquired absence of other organs; Z98.890 Other specified postprocedural states; W00.0XXA Fall on same level due to ice and snow, initial encounter; Y93.01 Activity, walking, marching and hiking; Y92.89 Other specified places as the place of occurrence of the external cause; Y99.8 Other external cause status
CPT/HCPCS: 29515; 73610; 96372; 99283; J1885; Q0092

== ENCOUNTER 2019-02-26 18:46 | Emergency (ER) | payer MEDICAID ==
[~2019-02-26] VITALS: Ht 162.6 cm; Wt 94.3 kg
--- NOTE | 2019-02-26 18:51 | NUR ---
Patient ambulated to bed 11. RN evaluating patient at bedside.
[2019-02-26 18:56] VITALS: BP 120/70
--- NOTE | 2019-02-26 18:59 | NUR ---
Dr. Miller is evaluating the patient at bedside.
[2019-02-26] MEDS ORDERED: KETOROLAC 60 MG/2 ML VIAL IM ONE (19:10)
--- NOTE | 2019-02-26 19:19 | NUR ---
REPORT GIVEN TO ZEE ARMAS. PT KENNA.
--- NOTE | 2019-02-26 19:30 | NUR ---
43 Y/O FEMALE PRESENTS TO ED, C/O RIGHT HIP PAIN. PT STATES HAVING FALL LAST DECEMBER. PT HAS BEEN SEEING DOCTOR FOR PAIN. RX NORCO5; LAST TIME TAKEN WAS YESTERDAY WITH SOME RELIEF. PT STATES PAIN IS WORSENING TODAY 12/19. AMBULATES WITH UNSTEADY GAIT DUE TO PAIN. LIMITED HIP ROM. PT VSS. ERMD AWARE. WILL CONTINUE TO MONITOR.
--- NOTE | 2019-02-26 20:18 | NUR ---
PT RETURN FROM XRAY
[2019-02-26 20:40] VITALS: BP 121/59
--- NOTE | 2019-02-26 20:40 | NUR ---
PT DISCHARGED WITH PAPERWORK. EDUCATED PT REGARDING MEDICATION AND D/C DIAGNOSIS. PT VERBALIZED UNDERSTANDING. TOLD PT TO FOLLOW UP WITH PCP AND WHEN TO RETURN TO ED. PT AT STABLE CONDITION. ALL QUESTIONS ANSWERED.
== END 2019-02-26 20:40 | disposition home or self-care (01) ==
LOC: MED 18:46
DX: M54.41 Lumbago with sciatica, right side (principal); J45.909 Unspecified asthma, uncomplicated; Z98.890 Other specified postprocedural states; Z79.899 Other long term (current) drug therapy
CPT/HCPCS: 72170; 73502; 81025; 96372; 99283; J1885

== ENCOUNTER 2019-03-16 19:50 | Emergency (ER) | payer MEDICAID ==
[~2019-03-16] VITALS: Ht 162.6 cm; Wt 98.0 kg
[2019-03-16 19:55] VITALS: BP 140/95
--- NOTE | 2019-03-16 19:58 | NUR ---
TO LOBBY A/W BED AMBULATORY
--- NOTE | 2019-03-16 21:30 | NUR ---
Note undone in EDM - 03/16/19 at 2255 by [email or web address] 43/F PRESENTS TO ED, C/O COUGH X3 DAYS. REPORTS HEADACHE AND LOWER BACK PAIN, EXACERBATED BY COUGHING. PT AFEBRILE. PT AWAKE AND ALERT, SKIN NORMAL COLOR WARM AND DRY, SPO 99% ON RA, RR 22 EVEN AND MILDLY TACHYPNIC, MILDLY LABORED. LUNG SOUNDS WITH MILD EXP WHEEZE ON R LOWER LOBE, REMAINING LOBES CLEAR. HX ASTHMA RX ALBUTEROL INH AND NEB, WITH SOME RELIEF.
--- NOTE | 2019-03-16 21:56 | NUR ---
PT AMBULATED TO BED 09
--- NOTE | 2019-03-16 22:30 | NUR ---
43/F PRESENTS TO ED, C/O COUGH X3 DAYS. REPORTS HEADACHE AND LOWER BACK PAIN, EXACERBATED BY COUGHING. PT AFEBRILE. PT AWAKE AND ALERT, SKIN NORMAL COLOR WARM AND DRY, SPO 99% ON RA, RR 22 EVEN AND MILDLY TACHYPNIC, MILDLY LABORED. LUNG SOUNDS WITH MILD EXP WHEEZE ON R LOWER LOBE, REMAINING LOBES CLEAR. HX ASTHMA RX ALBUTEROL INH AND NEB, WITH SOME RELIEF.
[2019-03-16] MEDS ORDERED: KETOROLAC 60 MG/2 ML VIAL IM ONE (23:30)
[2019-03-17] VITALS: BP 122/78
--- NOTE | 2019-03-17 | NUR ---
Patient discharged with v/s stable. Written and verbal after care instructions given and explained. Patient alert, oriented and verbalized understanding of instructions. Ambulatory with steady gait. All questions addressed prior to discharge. ID band removed. Patient advised to follow up with PMD. Rx of TAMIFLU, MOTRIN, PROMETHAZINE/DEXTROMETHORPHAN given. Patient educated on indication of medication including possible reaction and side effects. Opportunity to ask questions provided and answered.
== END 2019-03-17 | disposition home or self-care (01) ==
LOC: MED 19:50
DX: J11.1 Influenza due to unidentified influenza virus with other respiratory manifestations (principal); J45.909 Unspecified asthma, uncomplicated; Z79.899 Other long term (current) drug therapy
CPT/HCPCS: 96372; 99283; J1885

== ENCOUNTER 2019-04-17 18:37 | Emergency (ER) | payer MEDICAID ==
[~2019-04-17] VITALS: Ht 160 cm; Wt 81.6 kg
[2019-04-17 18:48] VITALS: BP 132/75
[2019-04-17] MEDS ORDERED: ALBUTEROL SULFATE/IPRATROPIU 3 ML SOL IH ONE ×2 (19:10→19:45)
[2019-04-17] MEDS ORDERED: predniSONE 20 MG TAB PO ONE (19:15)
--- NOTE | 2019-04-17 19:20 | NUR ---
REPORT FROM TRINO KOCH RECEIVED, TRANSFER OF CARE AT THIS TIME
[2019-04-17] MEDS ORDERED: ALBUTEROL 0.083% 2.5 MG/3 ML NEBU INH ONE (20:00)
--- NOTE | 2019-04-17 20:36 | NUR ---
PATIENT STATES SHE FEELS BETTER AFTER BREATHING TREATMENT, RR 24, SPO2 97%.
--- NOTE | 2019-04-17 21:30 | NUR ---
PATIENT STATES SHE IS BREATHING MUCH BETTER, O2 SATURATION 96%.
[2019-04-17 21:53] VITALS: BP 107/61
--- NOTE | 2019-04-17 21:53 | NUR ---
Patient discharged with v/s stable. Written and verbal after care instructions ABOUT INFLUENZA given and explained. Patient alert, oriented and verbalized understanding of instructions. Ambulatory with steady gait. All questions addressed prior to discharge. ID band removed. Patient advised to follow up with PMD. Rx of ALBUTEROL, GUAIATUSSIN, AND TAMIFLU given. Patient educated on indication of medication including possible reaction and side effects. Opportunity to ask questions provided and answered. TRANSLATION SERVICE USED FOR [place] BY PHONE
== END 2019-04-17 21:53 | disposition home or self-care (01) ==
LOC: MED 18:37
DX: J10.1 Influenza due to other identified influenza virus with other respiratory manifestations (principal); J45.901 Unspecified asthma with (acute) exacerbation; Z79.899 Other long term (current) drug therapy; Z98.890 Other specified postprocedural states
CPT/HCPCS: 71045; 87804; 93005; 94640; 99285; J7512; J7613; J7620; Q0092

== ENCOUNTER 2019-04-18 22:54 | Emergency (ER) | payer MEDICAID ==
[~2019-04-18] VITALS: Ht 162.6 cm; Wt 102.5 kg
[2019-04-18 22:55] VITALS: BP 127/81
--- NOTE | 2019-04-18 23:08 | NUR ---
PT AMBULATED TO ER BED 04
--- NOTE | 2019-04-18 23:10 | NUR ---
43 Y/O FEMALE BIB SELF FOR COUGH, SORE THROAT, BODY ACHES. PT. WAS SEEN HERE AND WAS GIVEN TAMIFLU FOR INFLUENZA LAST NIGHT. PT STATES, "I TOOK THE MEDICINE THEY GAVE ME AND I FEEL THE SAME. I FEEL BODY ACHES AND BACK PAIN WHEN I COUGH". LUNG SOUNDS CLEAR/DIMINISHED THROUGHOUT. DRY, NONPRODUCTIVE COUGH NOTED. PAIN IS A 7/10 GENERALIZED ACHING PAIN. DENIES N/V/D. ERMD MADE AWARE OF STATUS. SIDE RAILS X1. WILL CONTINUE TO MONITOR. PMH: ASTHMA RX:ALBUTEROL NKDA
--- NOTE | 2019-04-18 23:13 | NUR ---
DR. WRIGHT EVALUATING PATIENT AT BEDSIDE.
[2019-04-18] MEDS ORDERED: KETOROLAC 30 MG/ML VIAL IM ONE (23:25)
[2019-04-18] MEDS ORDERED: ACETAMIN/CODEINE 120/12MG-5ML 5 ML UDC PO ONE (23:25)
[2019-04-18] MEDS ORDERED: ALBUTEROL SULFATE/IPRATROPIU 3 ML SOL IH ONE (23:25)
--- NOTE | 2019-04-18 23:30 | NUR ---
PATIENT ON BREATHING TREATMENT. RT BEDSIDE.
[2019-04-18] MEDS ORDERED: DEXAMETHASONE 10 MG/ML VIAL IM ONE (23:45)
[2019-04-19 00:05] VITALS: BP 131/72
--- NOTE | 2019-04-19 00:05 | NUR ---
Patient discharged with v/s stable. She states pain relieved and no long c/o sob/dyspena. Written and verbal after care instructions given and explained. Patient verbalized understanding. Ambulatory with steady gait. All questions addressed prior to discharge. Advised to follow up with PMD.
== END 2019-04-19 00:05 | disposition home or self-care (01) ==
LOC: MED 22:54
DX: J11.1 Influenza due to unidentified influenza virus with other respiratory manifestations (principal); J45.909 Unspecified asthma, uncomplicated; Z79.899 Other long term (current) drug therapy; Z90.49 Acquired absence of other specified parts of digestive tract
CPT/HCPCS: 94640; 96372; 99283; J1100; J1885; J7620

== ENCOUNTER 2019-06-08 08:00 | Emergency (ER) | payer MEDICAID, SELFPAY ==
[~2019-06-08] VITALS: Ht 162.6 cm; Wt 94.3 kg
[2019-06-08 08:28] VITALS: BP 115/71
[2019-06-08] MEDS ORDERED: ALBUTEROL HFA MDI 90 MCG/ACTUATION 8 GM INH ONE (09:05)
[2019-06-08] MEDS: KETOROLAC 30 MG/ML VIAL IM ONE (09:05)
[2019-06-08 11:09] VITALS: BP 109/68
== END 2019-06-08 11:09 | disposition home or self-care (01) ==
LOC: EEVIPCON 08:00 → MED 08:00
DX: Z03.818 Encounter for observation for suspected exposure to other biological agents ruled out (principal); J45.901 Unspecified asthma with (acute) exacerbation; Z79.899 Other long term (current) drug therapy
CPT/HCPCS: 36415; 71045; 87804; 94640; 96372; 99284; J1885; U0002

== ENCOUNTER 2020-02-19 13:34 | Emergency (ER) | payer MEDICAID, SELFPAY ==
[~2020-02-19] VITALS: Ht 160 cm; Wt 113.4 kg
[2020-02-19 13:49] VITALS: BP 127/80
--- NOTE | 2020-02-19 15:10 | NUR ---
C/O SOB, BODY ACHES, CHILLS X3 DAYS. PATIENT HAS MILD CHEST PAIN RELATED TO BREATHING. NO RESP DISTRESS NOTED AT THIS TIME. PMH: ASTHMA NKDA
[2020-02-19 15:18] VITALS: BP 127/80
--- NOTE | 2020-02-19 15:18 | NUR ---
COVID SWAB AND WALKED TO LAB
--- NOTE | 2020-02-19 15:18 | NUR ---
Patient discharged with v/s stable. Written and verbal after care instructions given and explained. Patient alert, oriented and verbalized understanding of instructions. Ambulatory with steady gait. All questions addressed prior to discharge. ID band removed. Patient advised to follow up with PMD. Rx of PROMETHAZINE,IBUPROFEN given. Patient educated on indication of medication including possible reaction and side effects. Opportunity to ask questions provided and answered.
== END 2020-02-19 15:18 | disposition home or self-care (01) ==
LOC: MED 13:34
DX: R51.9 Headache, unspecified (principal); J45.909 Unspecified asthma, uncomplicated; Z90.81 Acquired absence of spleen; Z98.51 Tubal ligation status; Z79.899 Other long term (current) drug therapy; Z20.828 Contact with and (suspected) exposure to other viral communicable diseases
CPT/HCPCS: 99283; U0003

== ENCOUNTER 2020-04-26 05:05 | Emergency (ER) | payer MEDICAID, SELFPAY ==
[~2020-04-26] VITALS: Ht 162.6 cm; Wt 104.3 kg
[2020-04-26 05:08] VITALS: BP 117/86
--- NOTE | 2020-04-26 05:08 | NUR ---
TO BED AMBULATORY
--- NOTE | 2020-04-26 05:18 | NUR ---
44 YR OLD FEMALE PRESENTED TO THE ER WITH CC OF RIGHT EAR IMPACTION. PT IS AOX4. PT STATES WAKING UP APPROXIMATELY 2 HOURS AGO AND STATES HEARING SOMETHING MOVE IN RIGHT EAR. PT STATES NOT HAVING DIFFICULTY HEARING AND PT STATES HEARING FINE OUT OF RIGHT EAR. PT STATES NO PAIN. PT DENIES OTHER MEDICAL COMPLAINTS. BED LOCKED IN LOWEST POSITION. WILL CONTINUE TO MONITOR. HISTORY- ASTHMA ALLERGIES- NONE
--- NOTE | 2020-04-26 05:30 | NUR ---
ERMD AT BEDSIDE FOR MEDICAL EVALUATION.
--- NOTE | 2020-04-26 05:50 | NUR ---
WASHED OUT PT'S RIGHT EAR WITH NS, USED APPROX 30ML.
--- NOTE | 2020-04-26 05:59 | NUR ---
ERMD AT BEDSIDE.
[2020-04-26 06:27] VITALS: BP 117/86
--- NOTE | 2020-04-26 06:27 | NUR ---
Patient discharged with v/s stable. Written and verbal after care instructions given and explained. Patient alert, oriented and verbalized understanding of instructions. Ambulatory with steady gait. All questions addressed prior to discharge. ID band removed. Patient advised to follow up with PMD. Rx of CIPR & FLUTICASONE given. Patient educated on indication of medication including possible reaction and side effects. Opportunity to ask questions provided and answered.
== END 2020-04-26 06:27 | disposition home or self-care (01) ==
LOC: MED 05:05
DX: H61.21 Impacted cerumen, right ear (principal); H60.91 Unspecified otitis externa, right ear; R09.81 Nasal congestion; J45.909 Unspecified asthma, uncomplicated; Z79.899 Other long term (current) drug therapy
CPT/HCPCS: 99283

== ENCOUNTER 2020-05-30 11:09 | Emergency (ER) | payer MEDICAID, SELFPAY ==
[~2020-05-30] VITALS: Ht 162.6 cm; Wt 104.3 kg
--- NOTE | 2020-05-30 11:11 | NUR ---
PT AMBULATED TO BED 06.
[2020-05-30 11:16] VITALS: BP 124/74
--- NOTE | 2020-05-30 11:19 | NUR ---
DR DWYER AT BEDSIDE EXAMINING PATIENT
--- NOTE | 2020-05-30 11:22 | NUR ---
44 YEAR OLD FEMALE COMPLAINS OF SOB X 4 DAYS, WITH COMPRESSION FEELING AT CHEST WHEN BREATHING. PT WHEEZING ON INSPIRATION, RR 30, SPO2 99%. PT AOX4, BREATHING EVEN AND UNLABORED, SKIN WARM AND DRY. BED IN LOWEST POSITION, LOCKED, BED RAIL UPX1. PMH - ASTHMA ALLERGIES - NKA
[2020-05-30] MEDS ORDERED: ALBUTEROL SULFATE/IPRATROPIU 3 ML SOL IH ONE (11:25)
--- NOTE | 2020-05-30 11:31 | NUR ---
FLU SWAB SENT TO LAB
--- NOTE | 2020-05-30 11:42 | NUR ---
[facility] THERAPY AND RESPIRATORY DRUG GIVEN ORDERED ENCOURAGED PATIENT FOR INTERMITTENT DEEP BREATH DURING THERAPY
[2020-05-30] MEDS ORDERED: ALBU0.0912 INH (13:11)
[2020-05-30] MEDS ORDERED: PRED20TA5 PO (13:12)
--- NOTE | 2020-05-30 13:18 | NUR ---
Patient discharged with v/s stable. Written and verbal after care instructions given and explained. Patient alert, oriented and verbalized understanding of instructions. Ambulatory with steady gait. All questions addressed prior to discharge. ID band removed. Patient advised to follow up with PMD. Rx of ALBUTEROL AND PREDNISONE given. Patient educated on indication of medication including possible reaction and side effects. Opportunity to ask questions provided and answered.
[2020-05-30 13:19] VITALS: BP 124/74
== END 2020-05-30 13:18 | disposition home or self-care (01) ==
LOC: MED 11:09
DX: J45.901 Unspecified asthma with (acute) exacerbation (principal); Z98.51 Tubal ligation status
CPT/HCPCS: 71045; 87804; 94640; 99284

== ENCOUNTER 2020-10-06 22:09 | Emergency (ER) | payer MEDICAID ==
[~2020-10-06] VITALS: Ht 170.2 cm; Wt 88.5 kg
[~2020-10-06 22:09] MED LIST changes: +ALBU-118 IH; -ALBU-136 IH; +ALBU0.0912 INH; +PRED20TA5 PO
[2020-10-06 22:23] VITALS: BP 124/72
--- NOTE | 2020-10-06 22:30 | NUR ---
PATIENT PRESENTS TO ED WITH C/O "I'M TIRED" AND GENERALIZED BODY ACHES . PT STATES SHE WAS SEEN AT [facility] LAS NIGHT FOR SAME COMPLAINT . DENIES N/V/D; SKIN IS PINK/WARM/DRY; AAOX4 WITH EVEN AND STEADY GAIT; LUNGS CLEAR BL; HR EVEN AND REGULAR; VSS; PATIENT POSITIONED FOR COMFORT; HOB ELEVATED; BEDRAILS UP X2; BED DOWN. ER MD MADE AWARE OF PT STATUS.
--- NOTE | 2020-10-06 22:30 | NUR ---
AMBULATED TO BED 1
[2020-10-06] MEDS ORDERED: NACL 0.9% 1,000 ML IV ONE (22:35)
[2020-10-06] MEDS ORDERED: KETOROLAC 30 MG/ML VIAL IVP ONE (22:35)
--- NOTE | 2020-10-06 23:40 | NUR ---
Dr. Arcos examining patient.
[2020-10-07] MEDS ORDERED: IBUP-2213 PO (00:07)
[2020-10-07] MEDS ORDERED: ONDA8TAB87 PO (00:07)
[2020-10-07] MEDS ORDERED: ACET-8386 PO (00:07)
[2020-10-07] MEDS ORDERED: PRED20TA5 PO (00:07)
== END 2020-10-07 00:25 | disposition home or self-care (01) ==
LOC: MED 22:09
DX: R51.9 Headache, unspecified (principal); Z20.822 Contact with and (suspected) exposure to COVID-19; R50.9 Fever, unspecified; M79.10 Myalgia, unspecified site; J45.909 Unspecified asthma, uncomplicated; Z90.49 Acquired absence of other specified parts of digestive tract; Z98.890 Other specified postprocedural states; Z79.899 Other long term (current) drug therapy
CPT/HCPCS: 81002; 87426; 96361; 96374; 99283; J1885; J7030

== ENCOUNTER 2021-01-16 20:19 | Emergency (ER) | payer MEDICAID ==
[~2021-01-16] VITALS: Ht 162.6 cm; Wt 103.0 kg
[~2021-01-16 20:19] MED LIST changes: +ACET-8386 PO; +IBUP-2213 PO; +ONDA8TAB87 PO
[2021-01-16 20:24] VITALS: BP 106/77
--- NOTE | 2021-01-16 20:28 | NUR ---
PT AMBULATED TO BED #4
[2021-01-16] MEDS ORDERED: ALBUTEROL 0.083% 2.5 MG/3 ML NEBU INH ONE ×2 (20:30→21:50)
[2021-01-16] MEDS ORDERED: ALBUTEROL SULFATE/IPRATROPIU 3 ML SOL IH ONE ×2 (20:30→21:50)
[2021-01-16] MEDS ORDERED: predniSONE 20 MG TAB PO ONE (20:30)
--- NOTE | 2021-01-16 21:00 | NUR ---
PATIENT STATES SHE IS CURRENTLY HAVING AN ASTHMA ATTACK THAT STARTED 3 DAYS AGO. TAKES INHALERS AT HOME AND HAVE NOT WORKED. STATES SHE FEELS CHEST TIGHTNESS WHEN SHE BREATHS AND COUGHS. PATIENT STATES SHE IS FEELING ANXIOUS DUE TO RESPIRATORY SYMPTOMS. HAS PRIOR HOSPITAL ADMISSIONS DUE TO ASTHMA ATTACKS. LUNGS CLEAR UPON AUSCULTATION. SOME LABORED BREATHING NOTED, PAIN DENIED. PATIENT OBSERVED IN NO APPARENT ACUTE DISTRESS. O2 SAT 97% AT ROOM AIR. RESPIRATIONS 26, BLOOD PRESSURE 126/96, HR 111. RECEIVED BREATHING TREATMENT FROM RT. WILL CONTINUE TO MONITOR. ALL SAFETY MEASURES IN PLACE.
[2021-01-16] MEDS ORDERED: ALBU0.0912 INH (22:47)
[2021-01-16] MEDS ORDERED: PRED20TA5 PO (22:47)
[2021-01-16 23:10] VITALS: BP 113/60
--- NOTE | 2021-01-16 23:10 | NUR ---
Patient discharged with v/s stable. Written and verbal after care instructions given and explained. Patient verbalized understanding. Ambulatory with steady gait. All questions addressed prior to discharge. Advised to follow up with PMD.
== END 2021-01-16 23:10 | disposition home or self-care (01) ==
LOC: MED 20:19
DX: J45.901 Unspecified asthma with (acute) exacerbation (principal); Z79.899 Other long term (current) drug therapy; Z98.890 Other specified postprocedural states
CPT/HCPCS: 94640; 99285; J7512; J7613

== ENCOUNTER 2021-03-26 10:29 | Emergency (ER) | payer MEDICAID ==
[~2021-03-26] VITALS: Ht 162.6 cm; Wt 108.0 kg
[2021-03-26 11:05] VITALS: BP 111/65
[2021-03-26] MEDS ORDERED: PROM118S5 PO (11:31)
[2021-03-26] MEDS ORDERED: BENZ200C4 PO (11:31)
[2021-03-26] MEDS ORDERED: AZIT250T4 PO (11:31)
[2021-03-26 11:55] VITALS: BP 111/65
--- NOTE | 2021-03-26 11:55 | NUR ---
NOVEL SWAB COLLECTED AND HANDED TO SKATES OPERATOR.
--- NOTE | 2021-03-26 11:56 | NUR ---
NO NURSING INTERVENTIONS PROVIDED
--- NOTE | 2021-03-26 11:56 | NUR ---
Patient discharged with v/s stable. Written and verbal after care instructions ABOUT COVID 19 AND ACUTE BRONCHITIS given and explained. Patient alert, oriented and verbalized understanding of instructions. Ambulatory with steady gait. All questions addressed prior to discharge. ID band removed. Patient advised to follow up with PMD. Rx of ZITHROMAX, BENZONATATE AND PROMETHAZINE given. Patient educated on indication of medication including possible reaction and side effects. Opportunity to ask questions provided and answered.
== END 2021-03-26 11:56 | disposition home or self-care (01) ==
LOC: MED 10:29
DX: B34.9 Viral infection, unspecified (principal); J45.909 Unspecified asthma, uncomplicated; Z79.899 Other long term (current) drug therapy
CPT/HCPCS: 99283; U0003

== ENCOUNTER 2021-03-28 23:38 | Emergency (ER) | payer MEDICAID ==
[~2021-03-28] VITALS: Ht 160 cm; Wt 106.3 kg
[~2021-03-28 23:38] MED LIST changes: +AZIT250T4 PO; +BENZ200C4 PO; +PROM118S5 PO
[2021-03-28 23:46] VITALS: BP 112/70
[2021-03-29] MEDS ORDERED: BLOOD GLUCOSE MONITORING 1 DEV DEV FS ONE (01:15)
[2021-03-29] MEDS ORDERED: KETOROLAC 15 MG/ML VIAL IM ONE (01:15)
[2021-03-29 01:24] LABS: APPEARANCE,URINE CLEAR (CLEAR); BILIRUBIN,URINE NEGATIVE (NEGATIVE); BLOOD, URINE NEGATIVE (NEGATIVE); COLOR,URINE YELLOW (YELLOW); LEUKOCYTE ESTERASE ,URINE NEGATIVE (NEGATIVE); NITRITE, URINE NEGATIVE (NEGATIVE); UGLUCOSE NEGATIVE (NEGATIVE)
[2021-03-29 03:08] VITALS: BP 112/70
== END 2021-03-29 03:08 | disposition home or self-care (01) ==
LOC: MED 23:38
DX: J02.9 Acute pharyngitis, unspecified (principal); Z20.822 Contact with and (suspected) exposure to COVID-19; J45.909 Unspecified asthma, uncomplicated; Z79.899 Other long term (current) drug therapy
CPT/HCPCS: 71045; 81003; 96372; 99284; J1885

== ENCOUNTER 2021-05-17 00:14 | Emergency (ER) | payer MEDICAID ==
[~2021-05-17] VITALS: Ht 162.6 cm; Wt 105.2 kg
[2021-05-17 00:24] VITALS: BP 150/98
--- NOTE | 2021-05-17 00:24 | NUR ---
45 YO/F BIB SELF W C/O R SIDED PRESSURE HEADACHE 10/10 X3 DAYS INT, + X2 EPISODES OF VOMIT,+ SWELLING TO R SIDE YAW, + RUNNY NOSE AND WATERY EYES. DENIES SOB, VISION PROBLEMS, NUMBNESS, WEAKNESS, FEVERS OR CHILLS. PT HAD SAME SYMPTOMS IN PAST, BUT RESOLVED. NO NAUSEA AT THIS TIME. PT TOOK TYLENOL/ IBUPROFEN W/O RELIEF. PT IN TRIAGE ROOM. VSS. BREATHING EVEN AND UNLABORED. NAD NOTED, WILL CONTINUE TO MONITOR. PMH:ASTHMA ALLERGIES:DENIES
[2021-05-17] MEDS ORDERED: KETOROLAC 30 MG/ML VIAL IM ONE (00:55)
[2021-05-17] MEDS ORDERED: ACETAMINOPHEN EXTRA STRENGTH 500 MG TAB PO ONE (00:55)
[2021-05-17] MEDS ORDERED: METOCLOPRAMIDE 10 MG TAB PO ONE (00:55)
--- NOTE | 2021-05-17 02:00 | NUR ---
PT MEDICATED FOR PAIN. PT AMBULATORY TO LOBBY, AWAITING CT RESULTS.
--- NOTE | 2021-05-17 02:55 | NUR ---
PT REPORTS HEADACHE IMPROVEMENT TO 3/10 AND REPORTS SHE FEELS THE SWELLING HAS GONE DOWN.
[2021-05-17] MEDS ORDERED: IBUP-1842 PO (03:04)
[2021-05-17] MEDS ORDERED: ACET-10509 PO (03:04)
[2021-05-17 03:11] VITALS: BP 137/89
--- NOTE | 2021-05-17 03:11 | NUR ---
Patient discharged with v/s stable. Written and verbal after care instructions given and explained. Patient alert, oriented and verbalized understanding of instructions. Ambulatory with steady gait. All questions addressed prior to discharge. ID band removed. Patient advised to follow up with PMD. Rx of IBUPROFEN, ACETAMINOPHEN given. Patient educated on indication of medication including possible reaction and side effects. Opportunity to ask questions provided and answered.
== END 2021-05-17 03:11 | disposition home or self-care (01) ==
LOC: MED 00:14
DX: R51.9 Headache, unspecified (principal); J45.909 Unspecified asthma, uncomplicated; Z79.899 Other long term (current) drug therapy
CPT/HCPCS: 70450; 96372; 99284; J1885; J8597; Q0163